=== PATIENT | male | born 1950 | race Caucasian/White ===

== ENCOUNTER 2020-11-06 10:00 | Outpatient (RCR) | payer MEDICARE, SELFPAY ==
--- NOTE | 2020-09-08 13:57 | STOPEVAL ---
SPEECH THERAPY INITIAL EVALUATION AND DISCHARGE: Thank you for referring Mihir Griffith to [facility].?Upon completion of speech, language, and cognition, it has been determined that pt's skills are within normal limits; therefore, for no further speech therapy is warranted at this time. Please review, sign, date and return this plan of care/discharge MAURO. I agree with and certify that the following plan of care is medically necessary. Referring Physician Date Attending Provider: Lokesh Osorio Outpatient Past Medical History Past Medical History Source of Past Medical History Patient Neurological History Hx Cerebrovascular Accident (CVA) Yes: 08-28-20 Cardiovascular History Hx Atrial Fibrillation Yes Hx Hypercholesterolemia Yes Hx Hypertension Yes Evaluation Information Problem Diagnosis CVA Onset 08-28-2020 Additional Evaluation Detail Went to [facility] in [place] on August 28; initial SX was left leg weakness and very mild slurred speech. Pt was discharged the next day. No home health or inpatient rehab was required. 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 Plans to retire from the [employer]. Pt has 3 kids. 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 Subjective Information Very pleasant and cooperative; Query Text:As Reported By Patient/ pt was accurately able to Family provide all medical history. 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
--- NOTE | 2020-09-08 15:41 | OTOPEVAL ---
OCCUPATIONAL THERAPY INITIAL EVALUATION REPORT 09/08/20 Thank you for referring Mihir Griffith to [facility].? The patient is scheduled to be seen for occupational therapy? 2x/week for 4 weeks. Please review, sign, date and return this plan of care MAURO. I agree with and certify that the following plan of care is medically necessary. Referring Physician Date Referring Provider: Lokesh Osorio MD *OT Outpatient Evaluation Start: 09/08/20 14:18 Freq: Status: Active Protocol: Document 09/08/20 14:18 NINFA (Rec: 09/08/20 15:38 NINFA [id number]) Therapy Assessment Status Assessment Status Assessment Status Evaluation Outpatient Past Medical History Past Medical History Source of Past Medical History Patient Neurological History Hx Cerebrovascular Accident (CVA) Yes: 08-28-20 Cardiovascular History Hx Atrial Fibrillation Yes Hx Hypercholesterolemia Yes Hx Hypertension Yes Evaluation Information Problem Diagnosis CVA Onset 08-28-2020 Additional Evaluation Detail Went to [facility] in [place] on August 28; initial symptoms: left leg weakness and very mild slurred speech. Pt was discharged the next day. No home health or inpatient rehab was required. 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 Job duties entail a lot of walking and some paperwork . 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
--- NOTE | 2020-09-11 15:09 | PTOPEVAL ---
PHYSICAL THERAPY EVALUATION AND PLAN OF CARE 09-11-20 Thank you for referring Mihir Griffith to [facility], s/p CVA.? Mihir is scheduled to be seen for Physical Therapy? 2 x/week for 4 weeks. Please review, sign, date and return this plan of care MAURO. I agree with and certify that the following plan of care is medically necessary. Referring Physician Date Attending Provider: Lokesh Osorio MD PT Outpatient Evaluation Document 09/11/20 14:00 CELIA (Rec: 09/11/20 15:09 CELIA [id number]) Outpatient Past Medical History Past Medical History Source of Past Medical History Recalled from Previous Visit, Confirmed with Patient/Family Neurological History Hx Cerebrovascular Accident (CVA) Yes: 08-28-20 Cardiovascular History Hx Atrial Fibrillation Yes Hx Hypercholesterolemia Yes Hx Hypertension Yes: meds Respiratory History Hx Respiratory Disorders No Significant History Gastrointestinal History Hx Gastrointestinal Disorders No Significant History Genitourinary History Hx Genitourinary Disorders No Significant History Musculoskeletal History Hx Arthritis Yes: L groin strain/pain, arthritis fingers Endocrine History Hx Endocrine Disorders No Significant History Evaluation Information Problem Diagnosis s/p CVA Onset 08-28-20 Subjective Information hospitalized over night only; Query Text:As Reported By Patient/ home and has not had any in pt Family or [facility] therapy; since home from hospital, has fallen 2x- initially standing and lost balance to the L side; from lower couch had issues getting up; was able to get up off floor by himself the second fall, stood by, pulled up on couch; Prior Level of Function Activity Level (Last 3 Months) 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
--- NOTE | 2020-10-09 10:37 | OTOPEVAL ---
OCCUPATIONAL THERAPY RE-EVALUATION REPORT AND D/C SUMMARY 10/09/20 Patient presents today for OT re-evaluation after 4 weeks of therapy. At this time, the patients ROM, strength, and coordination of the left UE have returned to functional limits. He is currently independent with HEP to continue to fine-tune strength and coordination, also. No further skilled OT indicated at this time. D/C with HEP. Thank you for referring Mihir Griffith to [facility].? Please review, sign, date and return this Discharge Note MAURO. I agree with and certify that the following plan of care is medically necessary. Referring Physician Date Referring Provider: Lokesh Osorio MD *OT Outpatient Re-Evaluation Start: 09/08/20 14:18 Evaluation Information Problem Diagnosis s/p CVA Onset 08-28-20 Additional Evaluation Detail Patient has been participating in outpatient OT 2x/week x4 weeks, since 09/08/20. Today is his first re-evaluation. He has been compliant with all materials. Subjective Information Mihir reports that he has Query Text:As Reported By Patient/ returned to being independent Family with bathing and dressing. 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 No difficulties with fine motor tasks, such as buttons and tying shoes. His has gone back to work, so he is alone during the day and has been making his own meals independently. Pain Assessment Timing of Pain Assessment Timing of Pain Assessment Assessment Pain Scale Pain Scale Used Numeric (1 - 10) Self Report Pain Assessment Generalized Reported Pain Level 0 Pain Score Pain Score 0: Self Report Additional Pain Score Comments No pain , but does report soreness from working out. Upper Extremity Range of Motion General Upper Extremity Range of Motion Gross Upper Extremity Range of Motion Bilat UE active ROM is Comments symmetrical Upper Extremity Muscle Strength Testing Scapular/Shoulder Left Shoulder Flexion Strength 4+ Good + Shoulder Extension Strength 5 Normal Shoulder Abduction Strength 4+ Good + Shoulder Adduction Strength 5 Normal Shoulder Medial Rotation Strength 5 Normal Shoulder Lateral Rotation Strength 4+ Good + Shoulder Strength Comments Left gross shoulder strength improved from 4-/5. Subjectively, patient reports his strength is about 90%
--- NOTE | 2020-10-09 11:26 | PTOPEVAL ---
PHYSICAL THERAPY RE-EVALUATION AND UPDATED PLAN OF CARE 10-09-20 Refer to the clinical summary below for his status today, compared to the initial evaluation. Continue PT services 2x/week for 4 weeks, to further increase LE strength, gait and balance skills. With progression of home exercises. Thank you for referring Mihir Griffith to [facility].? Please review, sign, date and return this updated plan of care [facility]. I agree with and certify that the following plan of care is medically necessary. Referring Physician Date Attending Provider: Lokesh Osorio MD Document 10/09/20 10:45 CELIA (Rec: 10/09/20 11:26 CELIA [id number]) Assessment Status Re-evaluation Subjective Information Mihir reports: strength Query Text:As Reported By Patient/ improved with arms and legs; Family in the house, not using the walker, only use when go out places; no falls; doing OK on 3 steps into home, but have not had a reason to go to basement; still feel balance is not right; have not gone out much because worried about the balance; Pain Assessment Timing of Pain Assessment Timing of Pain Assessment Assessment Pain Scale Pain Scale Used Numeric (1 - 10) Self Report Pain Assessment Generalized Reported Pain Level 5 Pain Frequency Chronic Other Pain Description pain L anterior hip-flexor issues, have been seeing dr about; muscles sore Pain Score Pain Score 5: Self Report Additional Pain Score Comments after do exercises, legs are sore Lower Extremity Muscle Strength Testing General Lower Extremity Strength Gross Lower Extremity Strength functional strength: -sitting L ankle circles- clock and counter clock rowland x 20 reps with good control - single leg standing R and L 2 seconds, unstable - standing R and L LE with 1 UE hold: hip abduction, hip extension and flexion x 20 reps; - sit/stand without use of UE's Balance Assessment Mcgarry Balance Assessment Sitting to Standing Independent w/out Hands Unsupported Stance Ability Safely- 2 minutes Sitting Unsupported, Feet on Floor Safely- 2 minutes Standing to Sitting Safely, Minimal Hand Use Transfer Ability Safely, Minimal Hand Use
--- NOTE | 2020-11-06 10:45 | PTOPEVAL ---
PHYSICAL THERAPY DISCHARGE 11-06-20 Refer to the clinical summary below for the status with today's reeval, compared to the last reeval. The goals were partially achieved. Mihir is independent with his home exercise program for LE and balance retraining. He is walking in the community and increasing his activity level. Discharge PT services. Thank you for referring Mihir Griffith to [facility].? Please review, sign, date and return this Discharge MAURO. I agree with and certify that the following plan of care is medically necessary. Referring Physician Date Attending Provider: Lokesh Osorio MD Document 11/06/20 10:10 CELIA (Rec: 11/06/20 10:44 CELIA [id number]) Assessment Status Discharge Subjective Information Mihir reports: groin strain Query Text:As Reported By Patient/ still bothering him- taking Family steroid and it helps, today is last one to take; no falls; walking outside up/down driveway and to grocery store; walking is slower, but do OK; going down to his basement stairs and No problem, but go slow; no longer using walker at all; still feels a little off balance; has returned to mowing his yard with riding mower; doing leg exercises at home; agrees to discharge from PT; Pain Assessment Timing of Pain Assessment Timing of Pain Assessment Assessment Pain Scale Pain Scale Used Numeric (1 - 10) Self Report Pain Assessment Generalized Reported Pain Level 0 Pain Frequency Chronic,Intermittent Other Pain Description L groin pain Lowest Pain Intensity 0 Greatest Pain Intensity 5 Pain Score Pain Score 0: Self Report Interventions Used Interventions Used By Clinicians Exercise Transfer Assessment Bed Transfer Assessment Sit to Stand Bed Transfer Ability Independent Chair Transfer Assessment Sit to Stand Chair Transfer Ability Independent Stand to Sit Chair Transfer Ability Independent Floor Transfer Assessment Ambulation Assistive Devices None Sit to Floor Transfer Ability Independent Floor to Sit Transfer Ability Independent Stand to Floor Transfer Ability Independent Balance Assessment Mcgarry Balance Assessment Sitting to Standing Independent w/out Hands Unsupported Stance Ability Safely- 2 minutes Sitting Unsupported, Feet on Floor Safely- 2 minutes Standing to Sitting Safely, Minimal Hand Use Transfer Ability Safely, Minimal Hand Use Unsupported Stance- Eyes Closed Safely, 10 seconds Unsupported Stance- Feet Together Independent, 1 minute Reaching For
== END 2020-11-07 09:19 | disposition home or self-care (01) ==
LOC: ANHPT 10:00
DX: I69.328 Other speech and language deficits following cerebral infarction (principal)
CPT/HCPCS: 92523; 97110; 97112; 97161; 97166

== ENCOUNTER 2024-05-10 16:00 | Outpatient (RCR) | payer MEDICARE, SELFPAY ==
--- NOTE | 2024-02-14 15:18 | OPREHPOC ---
Outpatient Therapy Plan of Care This is a Multidisciplinary Plan of Care that may contain components documented by all disciplines (PT, OT, and ST.) PT Problem 1 PT Problem #1 Knowledge Deficit PT Goal 1 Goal / Goal Update [place] with HEP Target Visit 4 PT Problem 2 PT Problem #2 Impaired Balance PT Goal 1 Goal / Goal Update Patient will demonstrate 6 point improvement in Tinetti test to minimize fall risk and improve safety with transfer and ambulation Target Visit 10 PT Goal 2 Goal / Goal Update Patient will demonstrate ability to stand unassisted for 1 minute to help with home ADLs and stability for overhead reach activity and self care Target Visit 10 PT Problem 3 PT Problem #3 Impaired Strength PT Goal 1 Goal / Goal Update Improve susana hip flexion strength to 4+/5 to improve foot clearance with gait Target Visit 10 PT Goal 2 Goal / Goal Update Improve [place] hip abduction strength to 4/5 to improve lateral stability with weight shifts and functional transfers Target Visit 10 PT Problem 4 PT Problem #4 Impaired Gait PT Goal 1 Goal / Goal Update Improve 2 minute walk distance to 300' with single point cane to improve gait independence, safety, and personal goal. Target Visit 10 PT Goal 2 Goal / Goal Update Improve susana shoulder flexion strength to 4+/5 to improve object lifting for cabinet retrieval and self care Target Visit 10
--- NOTE | 2024-02-14 15:18 | PTOPEVAL1 ---
Assessment and note entered by Alan Lantigua, PT Evaluation Information Assessment Status Evaluation Diagnosis CVA ICD-10 Condition Codes (PT) Weakness R53.1 Onset 12/18/23 Subjective Information Reports that he started having balance issues in November. Went to hospital and found out he had a CVA. He has since noted weakness on his right side. He has been doing home health up until about a couple weeks ago. Feels he is getting around the home better but has to use a wheeled walker in home. Would like to return to independent ambulation again. Had a right side CVA 3 years prior which he feels may have masked some symptoms . Reported Pain Level Pain Score 0: Self Report Assessment PT Clinical Summary Patient presents with significant weakness of susana hips and shoulder girdle at this time. Notable gait deviation, decrease in gait speed, and balance deficits resulting in high fall risk. Patient has notable anterior drift needing assistance when vestibular system is challenged. Will benefit from skilled therapy to address these deficits for alf strengthening and safety. Plan of Care Interventions Gait Training,Neuro Re-education,Therapeutic Activities,Therapeutic Exercise PT Services Indicated Yes Treatment Frequency and 2x/week for 10 visits Duration These treatments will address the objective and functional deficits as defined above. The patient will be advanced safely and appropriately in order for the patient to progress towards his/her prior level of function. Additional exercises will be introduced and as well as a comprehensive home exercise program upon discharge, if needed, ?to ensure carryover of functional gains achieved in the clinic. This treatment plan has been reviewed and agreement upon by the patient.
--- NOTE | 2024-03-07 08:50 | PCPTNOTE ---
Patient called and cancelled appointment due to illness.
--- NOTE | 2024-03-15 12:04 | OPREHPOC ---
Outpatient Therapy Plan of Care This is a Multidisciplinary Plan of Care that may contain components documented by all disciplines (PT, OT, and ST.) PT Problem 1 PT Problem #1 Knowledge Deficit PT Goal 1 Goal / Goal Update [place] with HEP Target Visit 4 Progress Met PT Goal 2 Goal / Goal Update 03-15-24 progress goal met continue towards to progress education and HEP Target Visit 19 PT Problem 2 PT Problem #2 Impaired Balance PT Goal 1 Goal / Goal Update Patient will demonstrate 6 point improvement in Tinetti test to minimize fall risk and improve safety with transfer and ambulation 03-15-24 progress goal not met, improved by 5 points NEW GOALS: 1* Tinetti balance score of 2* 5 reps sit/stand time of 18 seconds 3* sit/stand with use of 1 UE x 5 reps, with good control of motion and safe technique Target Visit 19 PT Goal 2 Goal / Goal Update Patient will demonstrate ability to stand unassisted for 1 minute to help with home ADLs and stability for overhead reach activity and self care 03-15-24 progress goal met Target Visit 10 Progress Met PT Problem 3 PT Problem #3 Impaired Strength PT Goal 1 Goal / Goal Update Improve susana hip flexion strength to 4+/5 to improve foot clearance with gait 03-15-24 progress goal not met continue towards Target Visit 19 PT Goal 2 Goal / Goal Update Improve susana hip abduction strength to 4/5 to improve lateral stability with weight shifts and functional transfers 03-15-24 progress goal not met continue towards Target Visit 19 PT Problem 4 PT Problem #4 Impaired Gait PT Goal 1 Goal / Goal Update Improve 2 minute walk distance to 300' with single point cane to improve gait independence, safety, and personal goal. 03-15-24 progress goal not met continue towards Target Visit 19 PT Goal 2 Goal / Goal Update Improve susana shoulder flexion strength to 4+/5 to improve object lifting for cabinet retrieval and self care 03-15-24 progress goal met Target Visit 10 Progress Met
--- NOTE | 2024-03-15 12:05 | PTOPPROG ---
Assessment and note entered by Alaina Schneider, PT Progress Report Assessment Status Progress Diagnosis CVA ICD-10 Condition Codes (PT) Weakness R53.1 Onset 12/18/23 Subjective Information balance and strength is better; want to continue therapy and be able to walk better, use the cane or nothing to walk; have pedal machine, use every day at home; do the exercises from here too; walk outside in driveway every day; Assessment PT Clinical Summary Mihir has received 9 PT sessions. Compared to the initial evaluation: Tinetti gait/ balance score from 13 to , but still at high risk for falls; able to stand for 2 minutes without assistive device and move arms, simulate reaching R/L without loss of balance; 2 minute walking test distance, with wheeled walker from 210' to 200'; strength of R and L hip flexion 4/5 and abduction 3+/5; sit/stand with use of 1 UE and decreased control/plops into chair; education for HEP and safety with mobility. The goals were partially achieved. Continue PT treatment to further improve LE strength, gait and balance skills and safety. Progression to lesser assistive device as able. Plan of Care Interventions Gait Training,Neuro Re-education,Patient/Caregiver Education,Therapeutic Activities,Therapeutic Exercise PT Services Indicated Yes Treatment Frequency and 2x/wk for 10 visits Duration These treatments will address the objective and functional deficits as defined above. The patient will be advanced safely and appropriately in order for the patient to progress towards his/her prior level of function. Additional exercises will be introduced and as well as a comprehensive home exercise program upon discharge, if needed, ?to ensure carryover of functional gains achieved in the clinic. This treatment plan has been reviewed and agreement upon by the patient.
--- NOTE | 2024-04-11 11:40 | PCPTNOTE ---
Reschedules this date, not feeling well. AKS
--- NOTE | 2024-04-18 10:56 | OPREHPOC ---
Outpatient Therapy Plan of Care This is a Multidisciplinary Plan of Care that may contain components documented by all disciplines (PT, OT, and ST.) PT Problem 1 PT Problem #1 Knowledge Deficit PT Goal 1 Goal / Goal Update [place] with HEP Target Visit 4 Progress Met PT Goal 2 Goal / Goal Update 03-15-24 progress goal met continue towards to progress education and HEP 04-18-24 progress goal met continue to progress education and HEP Target Visit 27 PT Problem 2 PT Problem #2 Impaired Balance PT Goal 1 Goal / Goal Update Patient will demonstrate 6 point improvement in Tinetti test to minimize fall risk and improve safety with transfer and ambulation 03-15-24 progress goal not met, improved by 5 points NEW GOALS: 1* Tinetti balance score of 04-18-24 progress goal not met, improved to continue towards goal 2* 5 reps sit/stand time of 18 seconds 3* sit/stand with use of 1 UE x 5 reps, with good control of motion and safe technique Target Visit 27 PT Goal 2 Goal / Goal Update Patient will demonstrate ability to stand unassisted for 1 minute to help with home ADLs and stability for overhead reach activity and self care 03-15-24 progress goal met Target Visit 10 Progress Met PT Problem 3 PT Problem #3 Impaired Strength PT Goal 1 Goal / Goal Update Improve susana hip flexion strength to 4+/5 to improve foot clearance with gait 03-15-24 progress goal not met continue towards 04-18-24 progress improved but goal not met; continue towards Target Visit 27 PT Goal 2 Goal / Goal Update Improve [place]ana hip abduction strength to 4/5 to improve lateral stability with weight shifts and functional transfers 03-15-24 progress goal not met continue towards 04-18-24 progress goal not met, but improved; continue towards goal Target Visit 27 PT Problem 4 PT Problem #4 Impaired Gait PT Goal 1 Goal / Goal Update Improve 2 minute walk distance to 300' with single point cane to improve gait independence, safety, and personal goal. 03-15-24 progress goal not met continue towards 04-18-24 progress goal improved to 220; continue towards goal Target Visit 27 PT Goal 2 Goal / Goal Update Improve susana shoulder flexion strength to 4+/5 to improve object lifting for cabinet retrieval and self care 03-15-24 progress goal met Target Visit 10 Progress Met
--- NOTE | 2024-04-18 10:56 | PTOPPROG ---
Assessment and note entered by Alaina Schneider, PT Progress Report Assessment Status Progress Diagnosis CVA ICD-10 Condition Codes (PT) Weakness R53.1 Onset 12/18/23 Subjective Information getting better, but balance is still off; using the wheeled walker most of the time, but sometimes in the house walk without it; have ordered a walking stick and it should be in today; have been doing all of the exercises; when first stand up, balance is off then is OK once start walking; have not had any falls; want to continue therapy to get stronger and walk better; Assessment PT Clinical Summary Mihir has received 19 PT sessions. He has improved slightly with LE strength, Tinetti balance score and 2 minute walking test distance. Continues to use the wheeled walker and had loss of balance with standing small base of support and turning with using the cane for gait training. The goals were partially met. Continue PT treatment. Plan of Care Interventions Gait Training,Neuro Re-education,Patient/Caregiver Education,Therapeutic Activities,Therapeutic Exercise PT Services Indicated Yes Treatment Frequency and 1-2x/wk for 8 visits Duration These treatments will address the objective and functional deficits as defined above. The patient will be advanced safely and appropriately in order for the patient to progress towards his/her prior level of function. Additional exercises will be introduced and as well as a comprehensive home exercise program upon discharge, if needed, ?to ensure carryover of functional gains achieved in the clinic. This treatment plan has been reviewed and agreement upon by the patient.
--- NOTE | 2024-05-11 08:52 | PCPTNOTE ---
This treatment is being continued on visit number [id number] . Please see documentation on both accounts to view progress. Completed interventions, outcomes, and problems have been marked as Inactive to facilitate the copying of the Care plan routine for recurring accounts.
== END 2024-05-11 08:19 | disposition home or self-care (01) ==
LOC: ANHPT 16:00
DX: Z86.73 Personal history of transient ischemic attack (TIA), and cerebral infarction without residual deficits (principal)
CPT/HCPCS: 97110; 97112; 97116; 97161; 97530

== ENCOUNTER 2024-05-24 13:30 | Outpatient (RCR) | payer MEDICARE, SELFPAY ==
--- NOTE | 2024-05-11 08:54 | PCPTNOTE ---
This treatment is being continued from visit number [id number] Please see documentation on both accounts to view progress. Completed interventions, outcomes, and problems have been marked as Inactive to facilitate the copying of the Care plan routine for recurring accounts.
--- NOTE | 2024-05-24 14:16 | PTOPDC ---
Assessment and note entered by Alaina Schneider PT Assessment Status Discharge Diagnosis CVA ICD-10 Condition Codes (PT) Weakness R53.1 Onset 12/18/23 Subjective Information feel like about the same; can be up/moving around 10-15 minutes at time, with wheeled walker; with shopping, use the motorized scooter; have been working on the exercises at home; balance seems to be off, varies from time to time; have not had any falls; get around the house pretty good; the neuropathy bothers my feet and legs all the time; and pt agree to d/c PT and continue at home with exercises and walking. Reported Pain Level Pain Score 0: Self Report:neuropahty of both legs Assessment PT Clinical Summary Mihir has received 25 PT sessions. Compared to the last progress report: Tinetti balance/gait score is the same at ; 2 minute walking test distance with the wheeled walker from 220 to 200'; 5 reps sit/stand time is the same at 28 seconds with use of both UE's; increase in R and L LE strength with supine SLR and bridge, but hip abduction is the same; walking with the small base quad cane is unsteady and small step length; education for HEP completed. Pt has good safety awareness and good support from his . He has not had any falls. The goals were partially met. Discharge PT services. He is to continue with HEP and walking as tolerated; with use of small base quad cane in home and with present. Plan of Care PT Services Indicated No
== END 2024-05-24 16:46 | disposition home or self-care (01) ==
LOC: ANHPT 13:30
DX: Z86.73 Personal history of transient ischemic attack (TIA), and cerebral infarction without residual deficits (principal)
CPT/HCPCS: 97110; 97116; 97530